=== PATIENT | female | born 1985 | race Caucasian/White ===

== ENCOUNTER 2017-05-22 23:20 | Emergency (ER) | payer OTHER ==
[~2017-05-22] VITALS: Ht 157.5 cm; Wt 58.0 kg
[~2017-05-22 23:20] MED LIST: ULTRAM50 M1 PO
[2017-05-23] MEDS ORDERED: BUSPIRONE5 MG PO (00:05)
[2017-05-23] MEDS ORDERED: BACTRIM DS1 TAB PO (00:06)
[2017-05-23] MEDS ORDERED: ARIPIPRAZOLE5 MG PO (00:06)
[2017-05-23] MEDS ORDERED: ELAVIL25 MG PO (00:06)
[2017-05-23] MEDS ORDERED: OXYBUTYNIN5 M1 PO (00:07)
[2017-05-23] MEDS ORDERED: KEFLEX500 MG PO (00:30)
[2017-05-23 00:51] VITALS: BP 106/68
== END 2017-05-23 00:52 | disposition home or self-care (01) | DRG 603 ==
LOC: ED 23:20
DX: L02.31 Cutaneous abscess of buttock (principal); F17.210 Nicotine dependence, cigarettes, uncomplicated

== ENCOUNTER 2017-11-08 21:53 | Emergency (ER) | payer OTHER ==
[~2017-11-08] VITALS: Ht 157.5 cm; Wt 71.6 kg
[~2017-11-08 21:53] MED LIST changes: +ARIPIPRAZOLE5 MG PO; +BACTRIM DS1 TAB PO; +BUSPIRONE5 MG PO; +ELAVIL25 MG PO; +KEFLEX500 MG PO; +OXYBUTYNIN5 M1 PO
[2017-11-08] MEDS ORDERED: NEURONTIN100 MG PO (22:24)
[2017-11-08] MEDS ORDERED: REQUIP0.5 MG PO (22:25)
[2017-11-08] MEDS ORDERED: ABILIFY10 MG PO (22:26)
[2017-11-08] MEDS ORDERED: CYMBALTA30 MG PO (22:26)
[2017-11-09] MEDS ORDERED: IBUPROFEN600 MG PO (00:21)
[2017-11-09] MEDS ORDERED: ORPHENADRINE100 MG PO (00:21)
[2017-11-09 00:48] VITALS: BP 120/65
== END 2017-11-09 00:47 | disposition home or self-care (01) | DRG 914 ==
LOC: ED 21:53
DX: T14.8XXA Other injury of unspecified body region, initial encounter (principal); F17.210 Nicotine dependence, cigarettes, uncomplicated; V49.50XA Passenger injured in collision with unspecified motor vehicles in traffic accident, initial encounter

== ENCOUNTER 2017-11-26 10:09 | Emergency (ER) | payer OTHER ==
[~2017-11-26] VITALS: Ht 157.5 cm; Wt 73.8 kg
[~2017-11-26 10:09] MED LIST changes: +ABILIFY10 MG PO; +CYMBALTA30 MG PO; +IBUPROFEN600 MG PO; +NEURONTIN100 MG PO; +ORPHENADRINE100 MG PO; +REQUIP0.5 MG PO
[2017-11-26 11:00] LABS: URINE BILIRUBIN - DIPSTICK NEGATIVE (NEGATIVE); URINE BLOOD DIPSTICK NEGATIVE (NEGATIVE); URINE COLOR YELLOW; URINE GLUCOSE - DIPSTICK NEGATIVE (NEGATIVE); URINE KETONE NEGATIVE (NEGATIVE); URINE LEUK ESTERASE NEGATIVE (NEGATIVE); URINE NITRITE - DIPSTICK NEGATIVE (Negative); URINE PROTEIN - DIPSTICK NEGATIVE (NEG-TRACE); URINE UROBILINOGEN - DIPSTICK 0.2 E.U./dL (0.2)
[2017-11-26 11:03] LABS: URINE CLARITY CLEAR
[2017-11-26 11:18] LABS: HEMATOCRIT 35.6 % (37.0-47.0); HEMOGLOBIN 11.9 g/dl (12.0-16.0); IMMATURE GRANULOCYTES 1.3 % (0.0-1.0); MEAN CELL VOLUME 96.7 fL CALC (80.0-100.0); MEAN CORPUSCULAR HGB 32.3 pG CALC (26.0-32.0); MEAN CORPUSCULAR HGB CONC 33.4 g/L CALC (32.0-36.0); NEUT# 9.85 thou/uL (2.00-7.15); RED BLOOD COUNT 3.68 mill/uL (4.20-5.60); RED CELL DISTRI WIDTH 12.5 % (11.5-15.5)
[2017-11-26] MEDS ORDERED: CYMBALTA60 MG PO (12:17)
[2017-11-26] MEDS ORDERED: DOXYCYCL HYC100 MG PO (15:09)
[2017-11-26] MEDS ORDERED: TYLENOL # 31 TAB PO (15:09)
[2017-11-26 15:34] VITALS: BP 94/52
== END 2017-11-26 15:34 | disposition home or self-care (01) | DRG 759 ==
LOC: ED 10:09
PROVIDERS: Family Medicine
DX: N73.9 Female pelvic inflammatory disease, unspecified (principal)

== ENCOUNTER 2018-04-29 12:48 | Emergency (ER) | payer OTHER ==
[~2018-04-29] VITALS: Ht 157.5 cm; Wt 80.0 kg
[~2018-04-29 12:48] MED LIST changes: +CYMBALTA60 MG PO; +DOXYCYCL HYC100 MG PO; +TYLENOL # 31 TAB PO
[2018-04-29 13:23] LABS: URINE BILIRUBIN - DIPSTICK NEGATIVE (NEGATIVE); URINE BLOOD DIPSTICK SMALL (NEGATIVE); URINE COLOR YELLOW; URINE GLUCOSE - DIPSTICK NEGATIVE (NEGATIVE); URINE KETONE NEGATIVE (NEGATIVE); URINE PH 5.5 (4.5-8.0); URINE PROTEIN - DIPSTICK 100 mg/dL (NEG-TRACE); URINE SPECIFIC GRAVITY 1.025; URINE UROBILINOGEN - DIPSTICK 0.2 E.U./dL (0.2)
[2018-04-29 13:29] LABS: URINE CLARITY CLOUDY; URINE LEUK ESTERASE SMALL (NEGATIVE); URINE NITRITE - DIPSTICK POSITIVE (Negative)
[2018-04-29 13:55] LABS: URINE BACTERIA MODERATE hpf; URINE WBC 20-50 WBC/hpf (0-5)
[2018-04-29 13:59] LABS: HEMATOCRIT 36.2 % (37.0-47.0); HEMOGLOBIN 11.8 g/dl (12.0-16.0); IMMATURE GRANULOCYTES 1.5 % (0.0-5.0); MEAN CELL VOLUME 96.3 fL CALC (80.0-100.0); MEAN CORPUSCULAR HGB 31.4 pG CALC (26.0-32.0); MEAN CORPUSCULAR HGB CONC 32.6 g/L CALC (32.0-36.0); NEUT# 10.54 thou/uL (2.00-7.15); RED BLOOD COUNT 3.76 mill/uL (4.20-5.60); RED CELL DISTRI WIDTH 13.7 % (11.5-15.5)
[2018-04-29 14:52] LABS: ALBUMIN 3.8 g/dL (3.2-5.0); ALKALINE PHOSPHATASE 75 u/l (38-126); ANION GAP 15 (6-22 (CALC)); BILIRUBIN, TOTAL 0.4 mg/dL (0.0-1.4); BUN 12 mg/dL (7-17); BUN/CREATININE RATIO 17 (12-20 (CALC)); CARBON DIOXIDE 25 mmol/l (22-30); CHLORIDE 104 mmol/l (95-108); CREATININE 0.7 mg/dL (0.5-1.0); GFR > 60 ML/MIN (>=60 (CALC)); GFR FOR AFR.AMER. > 60 ML/MIN (>=60 (CALC)); LIPASE 38 u/l (23-300); POTASSIUM 3.9 mmol/l (3.5-5.1); SGOT/AST 12 u/l (14-36); SGPT/ALT 23 u/l (9-52); SODIUM 140 mmol/l (137-146)
[2018-04-29] MEDS ORDERED: CEPHALEXIN500 M1 PO (15:50)
[2018-04-29 15:51] VITALS: BP 127/71
== END 2018-04-29 16:00 | disposition home or self-care (01) ==
LOC: ED 12:48
PROVIDERS: Family Medicine
DX: O26.851 Spotting complicating pregnancy, first trimester (principal); O23.41 Unspecified infection of urinary tract in pregnancy, first trimester; O99.331 Smoking (tobacco) complicating pregnancy, first trimester; F17.200 Nicotine dependence, unspecified, uncomplicated; Z3A.01 Less than 8 weeks gestation of pregnancy; B96.20 Unspecified Escherichia coli [E. coli] as the cause of diseases classified elsewhere

== ENCOUNTER 2018-08-31 18:22 | Emergency (ER) | payer OTHER ==
[~2018-08-31] VITALS: Ht 157.5 cm; Wt 68.0 kg
[~2018-08-31 18:22] MED LIST changes: +CEPHALEXIN500 M1 PO
[2018-08-31 19:45] LABS: HEMATOCRIT 33.5 % (37.0-47.0); HEMOGLOBIN 11.4 g/dl (12.0-16.0); IMMATURE GRANULOCYTES 1.2 % (0.0-5.0); MEAN CELL VOLUME 93.3 fL CALC (80.0-100.0); MEAN CORPUSCULAR HGB 31.8 pG CALC (26.0-32.0); NEUT# 7.06 thou/uL (2.00-7.15); RED BLOOD COUNT 3.59 mill/uL (4.20-5.60); RED CELL DISTRI WIDTH 13.1 % (11.5-15.5)
[2018-08-31 19:46] LABS: URINE BILIRUBIN - DIPSTICK NEGATIVE (NEGATIVE); URINE BLOOD DIPSTICK NEGATIVE (NEGATIVE); URINE COLOR YELLOW; URINE GLUCOSE - DIPSTICK NEGATIVE (NEGATIVE); URINE KETONE NEGATIVE (NEGATIVE); URINE LEUK ESTERASE TRACE (NEGATIVE); URINE NITRITE - DIPSTICK NEGATIVE (Negative); URINE PH 6.5 (4.5-8.0); URINE PROTEIN - DIPSTICK NEGATIVE (NEG-TRACE); URINE UROBILINOGEN - DIPSTICK 0.2 E.U./dL (0.2)
[2018-08-31 19:58] LABS: ALBUMIN 3.8 g/dL (3.2-5.0); ALKALINE PHOSPHATASE 97 u/l (38-126); ANION GAP 11 (6-22 (CALC)); BILIRUBIN, TOTAL 0.1 mg/dL (0.0-1.4); BUN 6 mg/dL (7-17); BUN/CREATININE RATIO 11 (12-20 (CALC)); CARBON DIOXIDE 24 mmol/l (22-30); CHLORIDE 106 mmol/l (95-108); CREATININE 0.5 mg/dL (0.5-1.0); GFR > 60 ML/MIN (>=60 (CALC)); GFR FOR AFR.AMER. > 60 ML/MIN (>=60 (CALC)); POTASSIUM 3.5 mmol/l (3.5-5.1); SGOT/AST 20 u/l (14-36); SODIUM 138 mmol/l (137-146); TOTAL PROTEIN 7.1 g/dL (6.3-8.2)
[2018-08-31] MEDS ORDERED: KEFLEX500 M1 PO (20:30)
[2018-08-31 20:37] VITALS: BP 107/69
== END 2018-08-31 20:45 | disposition home or self-care (01) ==
LOC: ED 18:22
PROVIDERS: Emergency Medicine; Family Medicine
DX: O22.42 Hemorrhoids in pregnancy, second trimester (principal); Z3A.23 23 weeks gestation of pregnancy; R09.81 Nasal congestion; R05 Cough; R06.2 Wheezing

== ENCOUNTER → 2018-10-05 | Outpatient (REF) | payer OTHER ==
[~2018-10-05] MED LIST changes: +KEFLEX500 M1 PO
[2018-10-05 07:17] LABS: HEMOGLOBIN 10.6 g/dl (12.0-16.0); IMMATURE GRANULOCYTES 2.4 % (0.0-5.0); MEAN CELL VOLUME 97.9 fL CALC (80.0-100.0); MEAN CORPUSCULAR HGB 32.4 pG CALC (26.0-32.0); MEAN CORPUSCULAR HGB CONC 33.1 g/L CALC (32.0-36.0); NEUT# 9.45 thou/uL (2.00-7.15); RED BLOOD COUNT 3.27 mill/uL (4.20-5.60); RED CELL DISTRI WIDTH 13.4 % (11.5-15.5)
== END | disposition home or self-care (01) ==
LOC: LAB 06:39
PROVIDERS: ATTEND Obstetrics & Gynecology
DX: Z34.92 Encounter for supervision of normal pregnancy, unspecified, second trimester (principal)

== ENCOUNTER 2019-01-19 22:34 | Emergency (ER) | payer OTHER ==
[~2019-01-19] VITALS: Ht 157.5 cm; Wt 66.0 kg
[2019-01-19 23:57] LABS: HEMOGLOBIN 12.5 g/dl (12.0-16.0); IMMATURE GRANULOCYTES 0.8 % (0.0-5.0); MEAN CELL VOLUME 96.8 fL CALC (80.0-100.0); MEAN CORPUSCULAR HGB 31.1 pG CALC (26.0-32.0); MEAN CORPUSCULAR HGB CONC 32.1 g/L CALC (32.0-36.0); NEUT# 6.07 thou/uL (2.00-7.15); RED BLOOD COUNT 4.02 mill/uL (4.20-5.60); RED CELL DISTRI WIDTH 13.2 % (11.5-15.5)
[2019-01-20 00:03] LABS: ALKALINE PHOSPHATASE 70 u/l (38-126); BUN 11 mg/dL (7-17); BUN/CREATININE RATIO 15 (12-20 (CALC)); CARBON DIOXIDE 24 mmol/l (22-30); CHLORIDE 110 mmol/l (95-108); CREATININE 0.7 mg/dL (0.5-1.0); GFR > 60 ML/MIN (>=60 (CALC)); GFR FOR AFR.AMER. > 60 ML/MIN (>=60 (CALC)); SODIUM 141 mmol/l (137-146); TOTAL PROTEIN 6.7 g/dL (6.3-8.2)
[2019-01-20 00:04] LABS: ANION GAP 11 (6-22 (CALC)); POTASSIUM 3.7 mmol/l (3.5-5.1)
[2019-01-20 00:05] LABS: ACT PARTIAL THROMBO TIME 26.6 SECONDS (20.0-32.5); PROTHROMBIN TIME 10.4 SECONDS (9.0-12.5)
[2019-01-20 00:06] LABS: BILIRUBIN, TOTAL 0.2 mg/dL (0.0-1.4); HEMATOCRIT 38.9 % (37.0-47.0); SGOT/AST 46 u/l (14-36)
[2019-01-20 00:54] LABS: TSH, 3RD GENERATION 2.68 uIU/mL (0.47 - 4.68)
[2019-01-20] MEDS ORDERED: ORTHO-NOVUM 1/31 TAB PO (02:01)
[2019-01-20 02:08] VITALS: BP 120/77
== END 2019-01-20 02:08 | disposition home or self-care (01) ==
LOC: ED 22:34
PROVIDERS: Family Medicine
DX: O72.2 Delayed and secondary postpartum hemorrhage (principal); F17.200 Nicotine dependence, unspecified, uncomplicated; R10.9 Unspecified abdominal pain

== ENCOUNTER 2019-02-17 15:09 | Emergency (ER) | payer OTHER ==
[~2019-02-17] VITALS: Ht 157.5 cm; Wt 63.6 kg
[~2019-02-17 15:09] MED LIST changes: +ORTHO-NOVUM 1/31 TAB PO
[2019-02-17 15:48] LABS: HEMATOCRIT 38.9 % (37.0-47.0); HEMOGLOBIN 12.7 g/dl (12.0-16.0); IMMATURE GRANULOCYTES 0.9 % (0.0-5.0); MEAN CELL VOLUME 95.6 fL CALC (80.0-100.0); MEAN CORPUSCULAR HGB 31.2 pG CALC (26.0-32.0); MEAN CORPUSCULAR HGB CONC 32.6 g/L CALC (32.0-36.0); NEUT# 5.36 thou/uL (2.00-7.15); RED BLOOD COUNT 4.07 mill/uL (4.20-5.60); RED CELL DISTRI WIDTH 12.9 % (11.5-15.5)
[2019-02-17 15:50] LABS: URINE BILIRUBIN - DIPSTICK NEGATIVE (NEGATIVE); URINE BLOOD DIPSTICK MODERATE (NEGATIVE); URINE COLOR YELLOW; URINE GLUCOSE - DIPSTICK NEGATIVE (NEGATIVE); URINE KETONE NEGATIVE (NEGATIVE); URINE LEUK ESTERASE NEGATIVE (NEGATIVE); URINE NITRITE - DIPSTICK NEGATIVE (Negative); URINE PROTEIN - DIPSTICK NEGATIVE (NEG-TRACE); URINE SPECIFIC GRAVITY 1.025; URINE UROBILINOGEN - DIPSTICK 0.2 E.U./dL (0.2)
[2019-02-17 16:02] LABS: URINE SQUAMOUS EPITHELIAL CELL FEW EPI/hpf (0-FEW); URINE WBC 0-2 WBC/hpf (0-5)
[2019-02-17 16:09] LABS: ALBUMIN 4.3 g/dL (3.2-5.0); ALKALINE PHOSPHATASE 68 u/l (38-126); ANION GAP 11 (6-22 (CALC)); BUN 11 mg/dL (7-17); BUN/CREATININE RATIO 13 (12-20 (CALC)); CARBON DIOXIDE 26 mmol/l (22-30); CHLORIDE 109 mmol/l (95-108); CREATININE 0.8 mg/dL (0.5-1.0); GFR > 60 ML/MIN (>=60 (CALC)); GFR FOR AFR.AMER. > 60 ML/MIN (>=60 (CALC)); LIPASE 89 u/l (23-300); POTASSIUM 4.3 mmol/l (3.5-5.1); SGOT/AST 17 u/l (14-36); SODIUM 143 mmol/l (137-146); TOTAL PROTEIN 7.5 g/dL (6.3-8.2)
[2019-02-17 16:11] LABS: BILIRUBIN, TOTAL 0.3 mg/dL (0.0-1.4)
[2019-02-17] MEDS ORDERED: XANAX1 MG PO (16:11)
[2019-02-17] MEDS ORDERED: WELLBUTRIN XL300 MG PO (16:12)
[2019-02-17] MEDS ORDERED: HYOSCYAMINE0.125 M3 PO (17:48)
[2019-02-17 18:14] VITALS: BP 118/62
== END 2019-02-17 18:19 | disposition home or self-care (01) ==
LOC: ED 15:09
PROVIDERS: Family Medicine
DX: K52.9 Noninfective gastroenteritis and colitis, unspecified (principal); F17.200 Nicotine dependence, unspecified, uncomplicated; R10.13 Epigastric pain; R11.2 Nausea with vomiting, unspecified; R19.7 Diarrhea, unspecified
CPT/HCPCS: Q9967

== ENCOUNTER 2019-03-06 16:12 | Emergency (ER) | payer OTHER ==
[~2019-03-06] VITALS: Ht 157.5 cm; Wt 90.0 kg
[~2019-03-06 16:12] MED LIST changes: +HYOSCYAMINE0.125 M3 PO; +WELLBUTRIN XL300 MG PO; +XANAX1 MG PO
[2019-03-06 17:11] LABS: HEMATOCRIT 36.7 % (37.0-47.0); HEMOGLOBIN 11.6 g/dl (12.0-16.0); IMMATURE GRANULOCYTES 0.7 % (0.0-5.0); MEAN CELL VOLUME 98.1 fL CALC (80.0-100.0); MEAN CORPUSCULAR HGB CONC 31.6 g/L CALC (32.0-36.0); NEUT# 5.06 thou/uL (2.00-7.15); RED BLOOD COUNT 3.74 mill/uL (4.20-5.60); RED CELL DISTRI WIDTH 13.2 % (11.5-15.5)
[2019-03-06 17:13] LABS: URINE BILIRUBIN - DIPSTICK NEGATIVE (NEGATIVE); URINE BLOOD DIPSTICK NEGATIVE (NEGATIVE); URINE COLOR YELLOW; URINE GLUCOSE - DIPSTICK NEGATIVE (NEGATIVE); URINE KETONE NEGATIVE (NEGATIVE); URINE LEUK ESTERASE NEGATIVE (NEGATIVE); URINE NITRITE - DIPSTICK NEGATIVE (Negative); URINE PROTEIN - DIPSTICK NEGATIVE (NEG-TRACE); URINE SPECIFIC GRAVITY 1.025; URINE UROBILINOGEN - DIPSTICK 0.2 E.U./dL (0.2)
[2019-03-06 17:17] LABS: BARBITURATES NEGATIVE (NEGATIVE); COCAINE NEGATIVE (NEGATIVE); METHADONE NEGATIVE (NEGATIVE); OXCYCODONE NEGATIVE (NEGATIVE); TETRAHYDROCANNABIONOL POSITIVE (NEGATIVE); TRICYLIC ANTIDEPRESSANTS NEGATIVE (NEGATIVE)
[2019-03-06 17:28] LABS: ALKALINE PHOSPHATASE 56 u/l (38-126); ANION GAP 11 (6-22 (CALC)); BUN 13 mg/dL (7-17); BUN/CREATININE RATIO 18 (12-20 (CALC)); CARBON DIOXIDE 30 mmol/l (22-30); CHLORIDE 106 mmol/l (95-108); CREATININE 0.7 mg/dL (0.5-1.0); ETHYL ALCOHOL 0 mg/dl (0-30); GFR > 60 ML/MIN (>=60 (CALC)); GFR FOR AFR.AMER. > 60 ML/MIN (>=60 (CALC)); LIPASE 111 u/l (23-300); POTASSIUM 4.2 mmol/l (3.5-5.1); SGOT/AST 18 u/l (14-36); SODIUM 142 mmol/l (137-146); TOTAL PROTEIN 6.9 g/dL (6.3-8.2)
[2019-03-06] MEDS ORDERED: LIBRAX1 CAP PO (20:21)
[2019-03-06 20:43] VITALS: BP 132/78
== END 2019-03-06 20:37 | disposition home or self-care (01) ==
LOC: ED 16:12
PROVIDERS: Emergency Medicine
DX: R10.84 Generalized abdominal pain (principal); G89.29 Other chronic pain; F17.200 Nicotine dependence, unspecified, uncomplicated; R19.7 Diarrhea, unspecified
CPT/HCPCS: Q9967

== ENCOUNTER 2019-03-23 19:26 | Emergency (ER) | payer MEDICAID ==
[~2019-03-23] VITALS: Ht 157.5 cm; Wt 65.0 kg
[~2019-03-23 19:26] MED LIST changes: +LIBRAX1 CAP PO
[2019-03-23 20:24] LABS: URINE BILIRUBIN - DIPSTICK NEGATIVE (NEGATIVE); URINE BLOOD DIPSTICK NEGATIVE (NEGATIVE); URINE COLOR YELLOW; URINE GLUCOSE - DIPSTICK NEGATIVE (NEGATIVE); URINE KETONE NEGATIVE (NEGATIVE); URINE LEUK ESTERASE NEGATIVE (NEGATIVE); URINE NITRITE - DIPSTICK NEGATIVE (Negative); URINE PROTEIN - DIPSTICK NEGATIVE (NEG-TRACE); URINE UROBILINOGEN - DIPSTICK 0.2 E.U./dL (0.2)
[2019-03-23 20:34] LABS: HEMATOCRIT 35.6 % (37.0-47.0); HEMOGLOBIN 11.9 g/dl (12.0-16.0); IMMATURE GRANULOCYTES 0.3 % (0.0-5.0); MEAN CELL VOLUME 94.7 fL CALC (80.0-100.0); MEAN CORPUSCULAR HGB 31.6 pG CALC (26.0-32.0); MEAN CORPUSCULAR HGB CONC 33.4 g/L CALC (32.0-36.0); NEUT# 3.58 thou/uL (2.00-7.15); RED BLOOD COUNT 3.76 mill/uL (4.20-5.60); RED CELL DISTRI WIDTH 12.7 % (11.5-15.5)
[2019-03-23 20:51] LABS: ALBUMIN 4.1 g/dL (3.2-5.0); ALKALINE PHOSPHATASE 77 u/l (38-126); AMYLASE 63 u/l (30-110); ANION GAP 10 (6-22 (CALC)); BUN 14 mg/dL (7-17); BUN/CREATININE RATIO 19 (12-20 (CALC)); CARBON DIOXIDE 26 mmol/l (22-30); CHLORIDE 110 mmol/l (95-108); CREATININE 0.7 mg/dL (0.5-1.0); GFR > 60 ML/MIN (>=60 (CALC)); GFR FOR AFR.AMER. > 60 ML/MIN (>=60 (CALC)); LIPASE 143 u/l (23-300); POTASSIUM 3.9 mmol/l (3.5-5.1); SGOT/AST 31 u/l (14-36); SODIUM 142 mmol/l (137-146); TOTAL PROTEIN 7.1 g/dL (6.3-8.2)
[2019-03-23 20:52] LABS: BILIRUBIN, TOTAL 0.2 mg/dL (0.0-1.4)
[2019-03-23] MEDS ORDERED: TRILEPTAL150 M1 PO (21:40)
[2019-03-23] MEDS ORDERED: PROZAC20 MG PO (21:41)
[2019-03-23] MEDS ORDERED: DICYCLOMINE10 MG PO (21:42)
[2019-03-23] MEDS ORDERED: GABAPENTIN300 M2 PO (21:42)
[2019-03-23] MEDS ORDERED: DOXYCYCL HYC100 MG PO (21:43)
[2019-03-23] MEDS ORDERED: HM IRON65 MG PO (21:45)
[2019-03-23] MEDS ORDERED: ONDANSETRON4 MG PO (21:46)
[2019-03-23] MEDS ORDERED: ULTRAM50 M1 PO (21:46)
[2019-03-23 21:50] VITALS: BP 131/60
== END 2019-03-23 21:57 | disposition home or self-care (01) ==
LOC: ED 19:26
PROVIDERS: Emergency Medicine
DX: R10.9 Unspecified abdominal pain (principal); F17.210 Nicotine dependence, cigarettes, uncomplicated; R68.83 Chills (without fever); R30.0 Dysuria; R11.2 Nausea with vomiting, unspecified; R19.7 Diarrhea, unspecified
CPT/HCPCS: Q9967

== ENCOUNTER 2019-05-10 06:33 | Day surgery (SDC) | payer OTHER ==
[~2019-05-10] VITALS: Ht 157.5 cm; Wt 68.0 kg
[~2019-05-10 06:33] MED LIST changes: +DICYCLOMINE10 MG PO; +FLOVENT HF220 MCG/AC; +GABAPENTIN300 M2 PO; +HM IRON65 MG PO; +ONDANSETRON4 MG PO; +PROZAC20 MG PO; +TRILEPTAL150 M1 PO
[2019-05-10 07:09] VITALS: BP 121/59
[2019-05-10 07:14] LABS: COCAINE POSITIVE (NEGATIVE); METHADONE NEGATIVE (NEGATIVE); TETRAHYDROCANNABIONOL POSITIVE (NEGATIVE); TRICYLIC ANTIDEPRESSANTS NEGATIVE (NEGATIVE)
[2019-05-10 07:15] LABS: BARBITURATES NEGATIVE (NEGATIVE); OXCYCODONE NEGATIVE (NEGATIVE)
== END 2019-05-10 07:57 | disposition home or self-care (01) ==
LOC: ORM 06:33
PROVIDERS: ATTEND Surgery
DX: D49.0 Neoplasm of unspecified behavior of digestive system (principal); R82.5 Elevated urine levels of drugs, medicaments and biological substances; Z53.09 Procedure and treatment not carried out because of other contraindication; F17.200 Nicotine dependence, unspecified, uncomplicated

== ENCOUNTER 2019-05-19 06:54 | Day surgery (SDC) | payer MEDICAID ==
[2019-05-19] VITALS (9 sets, daily range): BP systolic 102–131; BP diastolic 51–68
[~2019-05-19] VITALS: Ht 157.5 cm; Wt 68.6 kg
[~2019-05-19 06:54] MED LIST changes: -ABILIFY10 MG PO; +ABILIFY5 MG PO; +BUSPAR10 M1 PO; -BUSPIRONE5 MG PO; +PROZAC10 MG PO; -PROZAC20 MG PO
[2019-05-19 07:46] LABS: COCAINE NEGATIVE (NEGATIVE); METHADONE NEGATIVE (NEGATIVE); TETRAHYDROCANNABIONOL POSITIVE (NEGATIVE)
[2019-05-19 07:47] LABS: BARBITURATES NEGATIVE (NEGATIVE); OXCYCODONE NEGATIVE (NEGATIVE); TRICYLIC ANTIDEPRESSANTS NEGATIVE (NEGATIVE)
[2019-05-20 00:14] VITALS: BP 121/76
[2019-05-20 04:52] VITALS: BP 128/80
[2019-05-20 07:43] VITALS: BP 127/83
[2019-05-20] MEDS ORDERED: PERCOCET 5/325M1 TAB PO (10:18)
== END 2019-05-20 11:02 | disposition home or self-care (01) ==
LOC: ORM 06:54 → MS2 06:54 → ORM 08:00 → MS2 11:07 → ORM 11:07
PROVIDERS: ATTEND Surgery
DX: Q43.0 Meckel's diverticulum (displaced) (hypertrophic) (principal); F17.200 Nicotine dependence, unspecified, uncomplicated
CPT/HCPCS: J0131; J1100; J2710

== ENCOUNTER 2019-08-20 | Emergency (ER) | payer MEDICAID ==
[~2019-08-20] MED LIST changes: +PERCOCET 5/325M1 TAB PO
[2019-08-20 20:16] LABS: URINE BILIRUBIN - DIPSTICK NEGATIVE (NEGATIVE); URINE BLOOD DIPSTICK SMALL (NEGATIVE); URINE COLOR YELLOW; URINE GLUCOSE - DIPSTICK NEGATIVE (NEGATIVE); URINE KETONE NEGATIVE (NEGATIVE); URINE LEUK ESTERASE NEGATIVE (NEGATIVE); URINE NITRITE - DIPSTICK NEGATIVE (Negative); URINE PROTEIN - DIPSTICK 30 mg/dL (NEG-TRACE); URINE SPECIFIC GRAVITY >=1.030; URINE UROBILINOGEN - DIPSTICK 0.2 E.U./dL (0.2)
[2019-08-20 20:22] LABS: HEMATOCRIT 41.1 % (37.0-47.0); MEAN CELL VOLUME 94.5 fL CALC (80.0-100.0); MEAN CORPUSCULAR HGB CONC 33.8 g/L CALC (32.0-36.0); NEUT# 14.86 thou/uL (2.00-7.15); RED BLOOD COUNT 4.35 mill/uL (4.20-5.60)
[2019-08-20 20:23] LABS: BARBITURATES NEGATIVE (NEGATIVE); COCAINE POSITIVE (NEGATIVE); METHADONE NEGATIVE (NEGATIVE); OXCYCODONE NEGATIVE (NEGATIVE); TETRAHYDROCANNABIONOL POSITIVE (NEGATIVE); TRICYLIC ANTIDEPRESSANTS NEGATIVE (NEGATIVE); URINE SQUAMOUS EPITHELIAL CELL FEW EPI/hpf (0-FEW)
[2019-08-20 20:27] LABS: ALBUMIN 4.9 g/dL (3.2-5.0); ALKALINE PHOSPHATASE 91 u/l (38-126); BUN 14 mg/dL (7-17); BUN/CREATININE RATIO 12 (12-20 (CALC)); CHLORIDE 102 mmol/l (95-108); CREATININE 1.2 mg/dL (0.5-1.0); ETHYL ALCOHOL 0 mg/dl (0-30); GFR 52 ML/MIN (>=60 (CALC)); GFR FOR AFR.AMER. > 60 ML/MIN (>=60 (CALC)); POTASSIUM 3.9 mmol/l (3.5-5.1); SGOT/AST 41 u/l (14-36); SODIUM 138 mmol/l (137-146)
[2019-08-20 20:28] LABS: HEMOGLOBIN 13.9 g/dl (12.0-16.0)
[2019-08-20 20:35] LABS: ANION GAP 20 (6-22 (CALC)); BILIRUBIN, TOTAL 0.3 mg/dL (0.0-1.4); CARBON DIOXIDE 20 mmol/l (22-30); TOTAL PROTEIN 8.7 g/dL (6.3-8.2)
[2019-08-20] MEDS ORDERED: DILANTIN100 MG PO ×2 (21:51)
== END 2019-08-20 22:50 | disposition home or self-care (01) ==
PROVIDERS: Family Medicine
DX: G40.909 Epilepsy, unspecified, not intractable, without status epilepticus (principal); F17.200 Nicotine dependence, unspecified, uncomplicated

== ENCOUNTER 2019-10-01 | Emergency (ER) | payer MEDICAID ==
[~2019-10-01] MED LIST changes: +DILANTIN100 MG PO
[2019-10-01 11:53] LABS: HEMATOCRIT 40.5 % (37.0-47.0); HEMOGLOBIN 13.1 g/dl (12.0-16.0); IMMATURE GRANULOCYTES 0.7 % (0.0-5.0); MEAN CELL VOLUME 95.5 fL CALC (80.0-100.0); MEAN CORPUSCULAR HGB 30.9 pG CALC (26.0-32.0); MEAN CORPUSCULAR HGB CONC 32.3 g/L CALC (32.0-36.0); NEUT# 7.14 thou/uL (2.00-7.15); RED BLOOD COUNT 4.24 mill/uL (4.20-5.60); RED CELL DISTRI WIDTH 12.4 % (11.5-15.5)
[2019-10-01 12:15] LABS: ALBUMIN 4.7 g/dL (3.2-5.0); ALKALINE PHOSPHATASE 110 u/l (38-126); ANION GAP 17 (6-22 (CALC)); BILIRUBIN, TOTAL 0.4 mg/dL (0.0-1.4); BUN 9 mg/dL (7-17); BUN/CREATININE RATIO 13 (12-20 (CALC)); CARBON DIOXIDE 19 mmol/l (22-30); CHLORIDE 108 mmol/l (95-108); CREATININE 0.7 mg/dL (0.5-1.0); GFR > 60 ML/MIN (>=60 (CALC)); GFR FOR AFR.AMER. > 60 ML/MIN (>=60 (CALC)); POTASSIUM 4.4 mmol/l (3.5-5.1); SGOT/AST 28 u/l (14-36); SODIUM 139 mmol/l (137-146)
[2019-10-01 13:28] LABS: URINE BILIRUBIN - DIPSTICK NEGATIVE (NEGATIVE); URINE BLOOD DIPSTICK NEGATIVE (NEGATIVE); URINE COLOR YELLOW; URINE GLUCOSE - DIPSTICK NEGATIVE (NEGATIVE); URINE KETONE NEGATIVE (NEGATIVE); URINE LEUK ESTERASE NEGATIVE (NEGATIVE); URINE NITRITE - DIPSTICK NEGATIVE (Negative); URINE PH 5.5 (4.5-8.0); URINE PROTEIN - DIPSTICK 30 mg/dL (NEG-TRACE); URINE SPECIFIC GRAVITY >=1.030; URINE UROBILINOGEN - DIPSTICK 0.2 E.U./dL (0.2)
[2019-10-01 13:35] LABS: BARBITURATES NEGATIVE (NEGATIVE); COCAINE POSITIVE (NEGATIVE); METHADONE NEGATIVE (NEGATIVE); OXCYCODONE NEGATIVE (NEGATIVE); TETRAHYDROCANNABIONOL POSITIVE (NEGATIVE); TRICYLIC ANTIDEPRESSANTS POSITIVE (NEGATIVE)
[2019-10-01] MEDS ORDERED: DILANTIN100 MG PO ×2 (14:03)
[2019-10-01 14:04] LABS: URINE SQUAMOUS EPITHELIAL CELL FEW EPI/hpf (0-FEW)
== END 2019-10-01 14:33 | disposition home or self-care (01) | DRG 101 ==
DX: G40.909 Epilepsy, unspecified, not intractable, without status epilepticus (principal); F14.90 Cocaine use, unspecified, uncomplicated; F17.210 Nicotine dependence, cigarettes, uncomplicated; T42.76XA Underdosing of unspecified antiepileptic and sedative-hypnotic drugs, initial encounter; Z91.128 Patient's intentional underdosing of medication regimen for other reason

== ENCOUNTER 2020-05-07 13:48 | Observation (INO) | payer MEDICARE, MEDICAID ==
[~2020-05-07] VITALS: Ht 157.5 cm; Wt 77.0 kg
--- NOTE | 2020-05-07 13:50 | NUR ---
PT AMB TO ROOM HOLDING EPIGASTRIC REGION
--- NOTE | 2020-05-07 14:50 | NUR ---
PT RESTING IN BED AWAITING RESULTS. PT UPDATED ON PLAN OF CARE AND ADVISED TO CALL WITH ANY NEEDS OR FURTHER COMPLAINTS. WILL CONTINUE TO MONITOR.
[2020-05-07] MEDS ORDERED: PANTOPRAZOLE SO40 M1 PO (15:00)
[2020-05-07] MEDS ORDERED: PEPCID40 MG PO (15:02)
[2020-05-07] MEDS ORDERED: WELLBUTRIN XL300 MG PO (15:03)
[2020-05-07] MEDS ORDERED: KLONOPIN1 MG PO (15:04)
[2020-05-07] MEDS ORDERED: GABAPENTIN300 M2 PO (15:06)
[2020-05-07] MEDS ORDERED: TRILEPTAL150 M1 PO (15:10)
[2020-05-07] MEDS ORDERED: PROZAC40 MG PO (15:12)
[2020-05-07 15:13] LABS: MEAN CELL VOLUME 98.8 fL CALC (80.0-100.0); MEAN CORPUSCULAR HGB 32.1 pG CALC (26.0-32.0); MEAN CORPUSCULAR HGB CONC 32.4 g/dL CAL (32.0-36.0); NEUT# 4.08 thou/uL (2.00-7.15); RED BLOOD COUNT 3.4 mill/uL (4.20-5.60)
[2020-05-07] MEDS ORDERED: SEROQUEL100 MG PO (15:13)
[2020-05-07] MEDS ORDERED: CARAFATE1 GM/10 ML PO (15:17)
[2020-05-07 15:19] LABS: HEMATOCRIT 33.6 % (37.0-47.0); HEMOGLOBIN 10.9 g/dl (12.0-16.0)
[2020-05-07 15:27] LABS: ALBUMIN 4.2 g/dL (3.2-5.0); ALKALINE PHOSPHATASE 67 u/l (38-126); BUN 11 mg/dL (7-17); BUN/CREATININE RATIO 15 (12-20 (CALC)); CHLORIDE 106 mmol/l (95-108); CREATININE 0.7 mg/dL (0.5-1.0); GFR > 60 ML/MIN (>=60 (CALC)); GFR FOR AFR.AMER. > 60 ML/MIN (>=60 (CALC)); LIPASE 231 u/l (23-300); SGOT/AST 21 u/l (14-36); SODIUM 139 mmol/l (137-146); TOTAL PROTEIN 7.2 g/dL (6.3-8.2)
[2020-05-07 15:31] LABS: ANION GAP 9 (6-22 (CALC)); BILIRUBIN, TOTAL 0.1 mg/dL (0.0-1.4); CARBON DIOXIDE 28 mmol/l (22-30); POTASSIUM 3.5 mmol/l (3.5-5.1)
[2020-05-07 15:39] LABS: URINE BILIRUBIN - DIPSTICK NEGATIVE (NEGATIVE); URINE BLOOD DIPSTICK NEGATIVE (NEGATIVE); URINE COLOR YELLOW; URINE GLUCOSE - DIPSTICK NEGATIVE (NEGATIVE); URINE KETONE NEGATIVE (NEGATIVE); URINE LEUK ESTERASE NEGATIVE (NEGATIVE); URINE NITRITE - DIPSTICK NEGATIVE (Negative); URINE PH 6.5 (4.5-8.0); URINE PROTEIN - DIPSTICK NEGATIVE (NEG-TRACE); URINE SPECIFIC GRAVITY 1.015; URINE UROBILINOGEN - DIPSTICK 0.2 E.U./dL (0.2)
--- NOTE | 2020-05-07 15:50 | NUR ---
PT SITTING UP IN BED FILLING OUT PAPERWORK. ADVISED OF WAIT TIME FOR CT RESULTS AND UPDATED ON PLAN OF CARE. PT STATES HER PAIN IS NOW A 9/10. MD MADE AWARE. PT ADVISED TO CALL WITH ANY NEEDS OR CONCERNS. IV SITE APPEARS HEALTHY AND INTACT. VSS WNL. WILL CONTINUE TO MONITOR.
--- NOTE | 2020-05-07 16:50 | NUR ---
PT MEDICATED WITH DILAUDID FOR 9.5/10 PAIN PER EDP ORDER. PT UPDATED ON PLAN OF CARE AND VERBALIZED UNDERSTANDING. PT IV SITE APPEARS HEALTHY AND INTACT. VSS WNL. PT ADVISED TO CALL W/ ANY NEEDS OR CONCERNS. WILL CONTINUE TO MONITOR.
--- NOTE | 2020-05-07 17:50 | NUR ---
PROTONIX DRIP INFUSING AT THIS TIME. IV SITE APPEARS HEALTHY. VSS WNL. ADVISED PT OF POC AND TO CALL W/ ANY NEEDS AND CONCERNS. WILL CONTINUE TO MONITOR.
--- NOTE | 2020-05-07 18:12 | NUR ---
REPORT GIVEN TO PRO NAJERA.
--- NOTE | 2020-05-07 18:14 | NUR ---
REPORT REC FROM [facility]
--- NOTE | 2020-05-07 18:26 | NUR ---
TRANSPORTED PT TO [id number] AND RELINQUISHED CARE TO PRO NAJERA.
[2020-05-07 18:30] VITALS: BP 128/81
[2020-05-07 21:18] LABS: HEMATOCRIT 33.3 % (37.0-47.0); HEMOGLOBIN 10.8 g/dl (12.0-16.0)
--- NOTE | 2020-05-07 21:25 | NUR ---
ADMISSION AND ASSESSMENT COMPLETED AT THIS TIME. PHYSICIAN NOTIFIED FOR ORDERS. NO S/O DISTRESS NOTED. SPEECH MILDLY SLURRED, NEURO'S INTACT, LOCX4. PT WAS SLEEPING PRIOR TO MY ENTERING ROOM, BUT IS REQUESTING PAIN MEDICATIONS FOR PAIN REPORTED 10/10 IN UPPER BILAT ABD AND BACK. NO S/O DISTRESS NOTED. NEW ORDERS RECEIVED.
--- NOTE | 2020-05-07 22:19 | NUR ---
PAIN MEDICATION PULLED PER REQUEST, UPON ENTERING ROOM TO MEDICATED, PT WAS ASLEEP AND COULD BE HEARD SNORING. WILL FOLLOW-UP NEEDS APPEAR.
--- NOTE | 2020-05-07 22:26 | NUR ---
PT CALLED ASKING FOR PAIN MEDICATION. SPEECH SOMEWHAT SLURRED, BUT LOCX4. ANSWERING APPROPRIATELY. NEURO'S ARE INTACT. PT REPORTS PAIN 10/10 IN UPPER ABD BILAT AND LOWER BACK. PT MEDICATED ORDERS PROVIDE W/A SMALL SIP OF WATER PT DIETARY ORDERS ARE NPO, BUT APPROVED BY .
--- NOTE | 2020-05-07 23:58 | NUR ---
CHASER APPRENTICE IN TO OBTAIN V/S, NO S/O DISTRESS NOTED. PT WAS SLEEPING WE ENTERED THE ROOM. CALL LIGHT W/IN REACH.
[2020-05-08] VITALS: BP 119/78
[2020-05-08 04:00] VITALS: BP 124/74
[2020-05-08 05:07] LABS: HEMATOCRIT 33.8 % (37.0-47.0); HEMOGLOBIN 10.8 g/dl (12.0-16.0); MEAN CELL VOLUME 98.3 fL CALC (80.0-100.0); MEAN CORPUSCULAR HGB 31.4 pG CALC (26.0-32.0); RED BLOOD COUNT 3.44 mill/uL (4.20-5.60)
--- NOTE | 2020-05-08 05:10 | NUR ---
PT MEDICATED FOR PAIN 10/10 ON PAIN SCALE. PT WAS SLEEPING I ENTERED THE ROOM. NO S/O DISTRESS NOTED. DENIES ANY OTHER NEEDS AND IS TALKATIVE. DENIES BM OR VOMITING OVERNIGHT.
[2020-05-08 05:29] LABS: ANION GAP 8 (6-22 (CALC)); BUN 12 mg/dL (7-17); BUN/CREATININE RATIO 17 (12-20 (CALC)); CARBON DIOXIDE 28 mmol/l (22-30); CHLORIDE 107 mmol/l (95-108); CREATININE 0.7 mg/dL (0.5-1.0); GFR > 60 ML/MIN (>=60 (CALC)); GFR FOR AFR.AMER. > 60 ML/MIN (>=60 (CALC)); POTASSIUM 3.7 mmol/l (3.5-5.1); SODIUM 139 mmol/l (137-146)
[2020-05-08 07:07] VITALS: BP 117/76
--- NOTE | 2020-05-08 07:07 | NUR ---
PT LAYING IN BED. A&O X3. NO DISTRESS NOTED. PT DENIES ANY VOMITING OR BM LAST NIGHT, INSTURCTED PT TO CALL IF SHE DOES, PT VERBALIZED UNDERSTANDING. PT C/O OF EPIGASTRIC PAIN WITH SLIGHT NAUSEA THIS MORNING. NO OTHER NEEDS AT THIS TIME. ASSESSMENT COMPLETED. DISCUSSED POC. CALL LIGHT IN REACH. CONTINUE TO MONITOR.
--- NOTE | 2020-05-08 08:21 | NUR ---
COVID SWAB SAMPLE OBTAINED, TAKEN DOWN TO THE LAB AND OR CONSENT OBTAINED
--- NOTE | 2020-05-08 08:54 | NUR ---
TIARA AMIN [employer]ARD PIPE GRADER AT BEDSIDE DISCUSSING POC
--- NOTE | 2020-05-08 10:19 | NUR ---
PT TAKEN VIA STRETCHER ACCOMPANIED BY ANGIE RN AND ANDI RN IN STABLE CONDITION TO OR.
--- NOTE | 2020-05-08 11:38 | NUR ---
PT ARRIVED TO MS VIA STRETCHER ACCOMPANIED BY FRED NAJERA. NO DISTRESS NOTED. PT A&O. NO RESPIRATORY DISTRESS NOTED. CALL LIGHT IN REACH. BED IN LOWEST POSITION. CONTINUE TO MONITOR.
[2020-05-08 11:54] VITALS: BP 108/53
[2020-05-08 11:55] VITALS: BP 131/65
--- NOTE | 2020-05-08 12:06 | NUR ---
PT ABLE TO SWALLOW WITHOUT ANY DIFFICULTY. PT ADVANCED TO CARDIAC DIET, PT INSTRUCTED TO CALL IF UNABLE TO TOLERATE DIET. PT VERBALIZED UNDERSTANDING. CALL LIGHT IN REACH. CONTINUE TO MONITOR.
[2020-05-08] MEDS ORDERED: TALICIA PO (12:37)
--- NOTE | 2020-05-08 13:55 | NUR ---
D/C INSTRUCTIONS GIVEN TO PT. PT VERBALIZED UNDERSTANDING.
--- NOTE | 2020-05-08 14:46 | NUR ---
Discharge instructions given. Patient verbalizes understanding of same. Discharged in stable condition via wheelchair to home accompanied by staff. All belongings sent with pt.
== END 2020-05-08 14:45 | disposition home or self-care (01) ==
LOC: ED 13:48 → ED-I 14:32 → ED 14:32 → ED-I 16:56 → ED 17:09 → MS2 17:10
PROVIDERS: Family Medicine; ADMIT Internal Medicine; ATTEND Internal Medicine
PROC: 0DB78ZX Excision of Stomach, Pylorus, Via Natural or Artificial Opening Endoscopic, Diagnostic (ICD-10-PCS; principal; 2020-05-08)
DX: K29.51 Unspecified chronic gastritis with bleeding (principal); B96.81 Helicobacter pylori [H. pylori] as the cause of diseases classified elsewhere; G40.909 Epilepsy, unspecified, not intractable, without status epilepticus; F41.9 Anxiety disorder, unspecified; F32.9 Major depressive disorder, single episode, unspecified; F17.200 Nicotine dependence, unspecified, uncomplicated; Z87.11 Personal history of peptic ulcer disease; Z20.828 Contact with and (suspected) exposure to other viral communicable diseases
CPT/HCPCS: G0378; Q9967; S0164

== ENCOUNTER 2022-03-14 10:04 | Emergency (ER) | payer MEDICARE, OTHER ==
[~2022-03-14] VITALS: Ht 157.5 cm; Wt 65.7 kg
[~2022-03-14 10:04] MED LIST changes: +CARAFATE1 GM/10 ML PO; +KLONOPIN1 MG PO; +PANTOPRAZOLE SO40 M1 PO; +PEPCID40 MG PO; +PROZAC40 MG PO; +SEROQUEL100 MG PO; +TALICIA PO
[2022-03-14 10:18] VITALS: BP 146/100
[2022-03-14 10:30] VITALS: BP 119/76
[2022-03-14 11:01] VITALS: BP 108/67
[2022-03-14 12:30] VITALS: BP 143/96
[2022-03-14] MEDS ORDERED: TRAMADOL HYDROC50 M1 PO (12:34)
[2022-03-14 12:50] VITALS: BP 143/96
== END 2022-03-14 13:00 | disposition home or self-care (01) ==
LOC: ED 10:04
DX: M54.50 Low back pain, unspecified (principal); G40.909 Epilepsy, unspecified, not intractable, without status epilepticus; F41.9 Anxiety disorder, unspecified; F31.9 Bipolar disorder, unspecified; F17.200 Nicotine dependence, unspecified, uncomplicated; W01.0XXA Fall on same level from slipping, tripping and stumbling without subsequent striking against object, initial encounter; Y92.009 Unspecified place in unspecified non-institutional (private) residence as the place of occurrence of the external cause; Z87.11 Personal history of peptic ulcer disease

== ENCOUNTER 2022-04-11 21:22 | Emergency (ER) | payer MEDICARE, OTHER ==
[~2022-04-11] VITALS: Ht 157.5 cm; Wt 58.0 kg
[~2022-04-11 21:22] MED LIST changes: +TRAMADOL HYDROC50 M1 PO
[2022-04-11 21:38] VITALS: BP 114/73
[2022-04-11 21:45] VITALS: BP 92/57
[2022-04-11] MEDS ORDERED: BACTRIM DS1 TAB PO (21:53)
[2022-04-11 22:00] VITALS: BP 97/62
[2022-04-11 22:01] VITALS: BP 92/57
== END 2022-04-11 22:12 | disposition home or self-care (01) ==
LOC: ED 21:22
DX: L03.211 Cellulitis of face (principal); G40.909 Epilepsy, unspecified, not intractable, without status epilepticus; F41.9 Anxiety disorder, unspecified; F31.9 Bipolar disorder, unspecified; Z87.11 Personal history of peptic ulcer disease; F17.200 Nicotine dependence, unspecified, uncomplicated

== ENCOUNTER 2022-11-01 01:55 | Emergency (ER) | payer MEDICARE, OTHER ==
[~2022-11-01] VITALS: Ht 157.5 cm; Wt 56.0 kg
[2022-11-01] MEDS ORDERED: LAMICTAL100 M1 PO (02:18)
[2022-11-01] MEDS ORDERED: MEDICAL MARIJUANA (02:20)
[2022-11-01] MEDS ORDERED: KEFLEX500 MG PO (03:22)
[2022-11-01] MEDS ORDERED: LORTAB 1010 MG PO (03:22)
[2022-11-01] MEDS ORDERED: BACTRIM DS1 TAB PO (03:22)
[2022-11-01 03:45] VITALS: BP 100/62
== END 2022-11-01 03:45 | disposition home or self-care (01) ==
LOC: ED 01:55
PROC: 0H9BXZZ Drainage of Right Upper Arm Skin, External Approach (ICD-10-PCS; principal; 2022-11-01)
DX: L02.411 Cutaneous abscess of right axilla (principal); B95.62 Methicillin resistant Staphylococcus aureus infection as the cause of diseases classified elsewhere; G40.909 Epilepsy, unspecified, not intractable, without status epilepticus; F41.9 Anxiety disorder, unspecified; F31.9 Bipolar disorder, unspecified; F17.200 Nicotine dependence, unspecified, uncomplicated; Z87.11 Personal history of peptic ulcer disease

== ENCOUNTER 2023-04-14 09:19 | Emergency (ER) | payer MEDICARE, OTHER ==
[~2023-04-14] VITALS: Ht 157.5 cm; Wt 56.2 kg
[2023-04-14] VITALS (7 sets, daily range): BP systolic 113–141; BP diastolic 76–97
[~2023-04-14 09:19] MED LIST changes: +LAMICTAL100 M1 PO; +LORTAB 1010 MG PO; +MEDICAL MARIJUANA
[2023-04-14] MEDS ORDERED: VOLTAREN - GENE75 MG PO (10:27)
[2023-04-14] MEDS ORDERED: BACTRIM DS1 TAB PO (10:27)
== END 2023-04-14 10:46 | disposition home or self-care (01) ==
LOC: ED 09:19
DX: S92.414A Nondisplaced fracture of proximal phalanx of right great toe, initial encounter for closed fracture (principal); L03.031 Cellulitis of right toe; G40.909 Epilepsy, unspecified, not intractable, without status epilepticus; F41.9 Anxiety disorder, unspecified; F31.9 Bipolar disorder, unspecified; F17.200 Nicotine dependence, unspecified, uncomplicated; W20.8XXA Other cause of strike by thrown, projected or falling object, initial encounter

== ENCOUNTER 2024-04-19 19:28 | Emergency (ER) | payer MEDICARE, OTHER ==
[~2024-04-19] VITALS: Ht 157.5 cm; Wt 51.0 kg
[~2024-04-19 19:28] MED LIST changes: +NAPROXEN500 MG PO; +OFLOXACIN0.3 % OS; +VOLTAREN - GENE75 MG PO
[2024-04-19] MEDS ORDERED: methylPREDNISolone SODIUM SUCC 125 MG/2 ML SDV IM ONE (20:00)
[2024-04-19] MEDS ORDERED: IPRATROPIUM-Albuterol 0.5MG-2.5MG/3 ML NEB ONE (20:05)
[2024-04-19] MEDS ORDERED: ALBUTEROL SULFATE 2.5 MG VIAL IN ONE (20:05)
[2024-04-19 20:29] LABS: BASO% 0.5 % (0-3); EOS% 2.6 % (0-8); HEMATOCRIT 40.6 % (37.0-47.0); HEMOGLOBIN 13.4 g/dl (12.0-16.0); IMMATURE GRANULOCYTES 0.3 % (0.0-5.0); LYMPH% 27.8 % (15-41); MEAN CELL VOLUME 93.1 fL CALC (80.0-100.0); MEAN CORPUSCULAR HGB 30.7 pG CALC (26.0-32.0); MONO% 9.4 % (2-13); NEUT# 5.72 thou/uL (2.00-7.15); NEUT% 59.4 % (42-76); RED BLOOD COUNT 4.36 mill/uL (4.20-5.60); RED CELL DISTRI WIDTH 12.5 % (11.5-15.5)
[2024-04-19 20:41] LABS: HCG SERUM/URINE (NEG/POS) NEGATIVE (NEGATIVE)
[2024-04-19] MEDS ORDERED: ALBUTEROL SULFATE 8 GM INH IN ONE (21:00)
[2024-04-19] MEDS ORDERED: predniSONE 20 MG/TAB PO ONE (21:00)
[2024-04-19] MEDS ORDERED: VENTOLIN HFA IN (21:01)
[2024-04-19] MEDS ORDERED: MEDDOSEPAK PO (21:01)
[2024-04-19] MEDS ORDERED: CETIRIZINE10 MG PO (21:01)
[2024-04-19 21:27] VITALS: BP 126/59
== END 2024-04-19 21:27 | disposition home or self-care (01) ==
LOC: ED 19:28
PROVIDERS: Family Medicine
DX: J98.01 Acute bronchospasm (principal); G40.909 Epilepsy, unspecified, not intractable, without status epilepticus; F31.9 Bipolar disorder, unspecified; F41.9 Anxiety disorder, unspecified; Z87.891 Personal history of nicotine dependence; Z77.120 Contact with and (suspected) exposure to mold (toxic); Z20.822 Contact with and (suspected) exposure to COVID-19